=== PATIENT | female | born 1970 | race Caucasian/White ===

== ENCOUNTER → 2017-07-07 | Outpatient (REF) ==
[~2017-07-07] MED LIST: LOR10/325 PO; PEN250 PO
[2017-07-07 09:12] LABS: LDL CHOLESTEROL 48 mg/dl
== END ==
DX: Z02.9 Encounter for administrative examinations, unspecified (principal)

== ENCOUNTER → 2017-07-08 | Outpatient (REF) | payer OTHER | LOC: ZZSENDIN 17:16 | PROVIDERS: ATTEND Nurse Practitioner Family | DX: E54 Ascorbic acid deficiency (principal) | CPT/HCPCS: 82306 ==

== ENCOUNTER → 2017-07-14 | Outpatient (CLI) | payer OTHER | LOC: LAB 07-11 14:26 | PROVIDERS: ATTEND Nurse Practitioner Family | DX: N95.1 Menopausal and female climacteric states (principal) | CPT/HCPCS: 36415; 82670; 83001; 84403 ==

== ENCOUNTER → 2017-09-04 | Outpatient (CLI) | payer OTHER ==
--- NOTE | 2017-09-04 16:22 | RADIOLOGY IMAGING REPORT ---
FACILITY: [facility] - [place], [place] PATIENT NAME: JYOTI WARREN : [id number] MR: [id number] V: [id number] EXAM DATE: [id number] ORDERING PHYSICIAN: CYNTHIA MATUTE TECHNOLOGIST: Eneida Renteria PROCEDURE:BILATERAL DIGITAL SCREENING MAMMOGRAM WITH CAD ASSISTED INTERPRETATION & 3D TOMOSYNTHESIS COMPARISON:None. INDICATIONS:SCREENING FINDINGS: Scattered to heterogeneous fibroglandular tissue. No significant mass, microcalcifications or architectural distortion. IMPRESSION: BIRADS 1: Normal exam. Annual mammographic screening recommended. Dictated by: Bakari Jones on 09/04/2017 at 12:07 Transcribed by: ALBERTO on 09/04/2017 at 13:12 Approved by: Bakari Jones on 09/04/2017 at 16:21 [facility]
== END ==
LOC: MAMO 03:10
PROVIDERS: ATTEND Nurse Practitioner Family
DX: Z12.31 Encounter for screening mammogram for malignant neoplasm of breast (principal)
CPT/HCPCS: 77063; 77067

== ENCOUNTER → 2018-07-10 | Outpatient (REF) ==
[2018-07-10 08:25] LABS: LDL CHOLESTEROL 36 mg/dl
== END ==
DX: Z02.9 Encounter for administrative examinations, unspecified (principal)

== ENCOUNTER → 2018-07-14 | Outpatient (REF) | payer OTHER | LOC: ZZSENDIN 17:47 | PROVIDERS: ATTEND Nurse Practitioner Family | DX: E55.9 Vitamin D deficiency, unspecified (principal) | CPT/HCPCS: 82306 ==

== ENCOUNTER 2018-09-16 01:33 | Day surgery (SDC) | payer OTHER ==
[~2018-09-16] VITALS: Ht 170.2 cm; Wt 78.5 kg
[~2018-09-16 01:33] MED LIST changes: +CHOL10005 PO; +MULT-111; +VENL75CA58 PO
[2018-09-16] MEDS ORDERED: PROPOFOL EMUL(*) 10MG/ML 20 ML 40 ML ONE (07:17)
[2018-09-16] MEDS ORDERED: LIDOCAINE MPF 1% 5 ML VIAL ONE (07:17)
[2018-09-16] MEDS ORDERED: NORMOSOL R SOLN(*) 1000 ML BAG 1,000 ML IV PRN (08:20)
[2018-09-16] MEDS ORDERED: LIDOCAINE/SOD BICARB 8.4% SYR ID ONE (08:20)
[2018-09-16 08:22] VITALS: BP 140/72
[2018-09-16 09:12] VITALS: BP 93/59
--- NOTE | 2018-09-16 09:27 | Short(Outpt) Discharge Summary ---
Discharge Summary Reason for Hosp/Final Diag: (1) Colon cancer screening Status: Chronic Hospital Course & Plan: Colonoscopy with polypectomy x1 completed without problems. Departure Discharge to: Home, Self Care Discharge Instructions Home Meds Reported Medications Multivitamin (One-Daily Multi-Vitamin) 1 Each Tablet 07/21/18 Cholecalciferol (Vitamin D3) (VITAMIN D3) 1,000 Unit Tablet, 5000 UNIT PO, TAB 07/21/18 Venlafaxine Hcl (EFFEXOR XR) 75 Mg Cap.er.24h, 75 MG PO QDAY 07/21/18 Diet: Regular Activity: As Tolerated Special Instructions: Your colonoscopy was completed without problems and your prep was excellent (Good Job!!). I removed a single polyp from your colon and it was sent to pathology. My office will call you in the next week or two to let you know what the polyp is and when your next colonoscopy should be (either 5 or 10 years) depending on the pathology results. EVELIN FABIAN MD Sep 16, 2018 09:27
[2018-09-16 09:30] VITALS: BP 110/72
[2018-09-16 10:00] VITALS: BP 116/52
[2018-09-16 10:10] VITALS: BP 123/74
[2018-09-16 10:11] VITALS: BP 118/73
== END 2018-09-16 10:30 | disposition home or self-care (01) ==
LOC: OR 01:33
PROVIDERS: ATTEND Surgery
DX: Z12.11 Encounter for screening for malignant neoplasm of colon (principal); K63.5 Polyp of colon
CPT/HCPCS: 00811; 45385; 88305; J2001; J2704